=== PATIENT | male | born 1995 | race Caucasian/White ===

== ENCOUNTER 2020-07-22 03:02 | Emergency (ER) | payer SELFPAY ==
[~2020-07-22] VITALS: Ht 185.4 cm; Wt 95.3 kg
[2020-07-22 03:02] VITALS: BP_SYST 141
[2020-07-22] MEDS ORDERED: IBUPROFEN 800 MG TABLET PO ONE (03:30)
[2020-07-22] MEDS ORDERED: DIPH-TET-PERTUS Vaccine 0.5 ML VIAL (ADACEL) I.M. ONE (03:30)
[2020-07-22 03:54] VITALS: BP_SYST 141
[2020-07-22] MEDS ORDERED: BACITRACIN 1 GM OINT TP ONE (04:11)
== END 2020-07-22 03:54 ==
LOC: SED 03:02
DX: S16.1XXA Strain of muscle, fascia and tendon at neck level, initial encounter (principal); S61.411A Laceration without foreign body of right hand, initial encounter; R03.0 Elevated blood-pressure reading, without diagnosis of hypertension; F17.200 Nicotine dependence, unspecified, uncomplicated; V49.9XXA Car occupant (driver) (passenger) injured in unspecified traffic accident, initial encounter; Y93.89 Activity, other specified; Y92.413 State road as the place of occurrence of the external cause; Y99.8 Other external cause status
CPT/HCPCS: 72040-TC; 90715; 99283